=== PATIENT | female | born 1980 ===

== ENCOUNTER 2018-10-06 05:35 | Day surgery (SDC) | payer OTHER ==
[~2018-10-06 05:35] MED LIST: CODE1TAB37 PO; Mylicon 125MG PO; SYNTHROID50 MCG PO; SYNTHROID75 MCG
== END 2018-10-06 14:15 | disposition home or self-care (01) ==
LOC: CIR.AMB 05:35 → ADM 07:00 → CIR.AMB 07:30
DX: Z30.2 Encounter for sterilization (principal); N75.8 Other diseases of Bartholin's gland